=== PATIENT | male | born 1985 | race Hispanic/Latino ===

== ENCOUNTER 2019-09-01 00:09 | Emergency (ER) | payer OTHER, SELFPAY ==
[2019-09-01] MEDS ORDERED: SODIUM CHLORIDE 0.9% (FLUSH) 10 ML SYG IV PRN (00:24)
[2019-09-01] MEDS: SODIUM CHLORIDE 0.9% 1000ML 1,000 ML IVS ONE (00:25)
--- NOTE | 2019-09-01 00:31 | ED.PDOC ---
History of Present Illness - General Time Seen by Provider: 09/01/19 00:24 Source: RN notes reviewed, Vital Signs reviewed, EMS notes reviewed, police, RN/MD, EMS Exam Limitations: clinical condition - History of Present Illness Initial Comments: Pt is a 34 yo male who presents to ED s/p cardiac arrest. All information is from EMS. Per EMS, pt was detained in police care and wrapped the seatbelt around his neck and strangled himself. CPR started immediately. Pt pulseless upon EMS arrival and Parmjit Air airway placed for ventilation. Given 3 doses of EPI in route with ROSC. Upon arrival to ED, pulse is sinus in 130's and has strong femoral pulse. Intubated with glidescope with 7.5 blade. Pt has made no spontaneous movements or respirations and GCS is 3. he has not recieved any sedation. Allergies/Adverse Reactions: Allergies UNOBTAINABLE Allergy (Verified 09/01/19 00:35) Review of Systems - Review of Systems Unable to Obtain Due To: intubated, clinical condition Physical Exam - Physical Exam General Appearance: Other - Purple discoloration of neck and face. Parmjit Airway in place Eye Exam: bilateral other - Pupils are 8 mm and not responsive Neck: other - C collar placed on arrival Respiratory: other - No spontaneous respirations. BVM ventilated with bilateral BS Cardiovascular/Chest: other - strong femoral pulse, tachycardic Gastrointestinal/Abdominal: other - soft, ND Extremity: other - No deformity or trauma noted to extremities Neurologic: other - No purposeful movements. GCS 3 Skin Exam: other - Bluish discoloration of face Progress - Progress Progress: 09/01/19 00:35 Pt presented s/p cardiac arrest with ROSC. intubated in ED and Epi drip ordered. I have d/w Dr. Brito at [facility] ED via transfer line and accepts to ED. Systolic pressures in 220's upon [facility] arrival and Epi drip was not started. CXR shows no PTX. ETT in good position. Has 2 PIV's. Will transfer for higher level of care. - Results/Orders Results/Orders: EKG-- sinus tachycardia, rate 147, wide QRS, RBBB, diffuse ST depressions EXAM: XR Chest, 1 View CLINICAL HISTORY: The patient is 34 years old and is Male; Intubation TECHNIQUE: Frontal view of the chest. COMPARISON: No relevant prior studies available. FINDINGS: LUNGS: Mild bilateral upper lobe and infrahilar interstitial opacities are present. There are low lung volumes. PLEURAL SPACE: Unremarkable. No pneumothorax. HEART: Unremarkable. No cardiomegaly. MEDIASTINUM: Unremarkable. BONES/JOINTS: Unremarkable. TUBES, LINES AND DEVICES: An endotracheal tube is present with the tip approximately 2.4 cm superior to the lyubov. IMPRESSION: 1. Endotracheal tube tip in appropriate position. 2. Mild interstitial markings which may be secondary to mild infectious process. 09/01/19 00:24 IV Care:Saline Lock per Protoc QSHIFT Telemetry .ONCE Sodium Chloride 0.9% (Flush) [Saline Flush Syringe] 10 ml IV PRN PRN EKG Stat Pulse Ox Stat 09/01/19 00:25 Sodium Chloride 0.9% 1000ML [Ns 1000 ml] 1,000 ml IVS ONCE EKG Assessment ONCE Pulse Oximetry Assessment DAILY 09/01/19 00:39 Collar:Cervical (Hard) .PRN Laboratory Results - last 24 hr 09/01/19 09/01/19 00:20 00:20 WBC 6.3 RBC 4.95 Hgb 15.5 Hct 46.7 MCV 94.3 H MCH 31.3 H MCHC 33.2 RDW 14.1 Plt Count 230 MPV 8.6 Absolute Neuts (auto) Not Reportable Absolute Lymphs (auto) Not Reportable Absolute Monos (auto) Not Reportable Absolute Eos (auto) Not Reportable Neutrophils % Not Reportable Neutrophils % (Manual) 13.0 L Lymphocytes % Not Reportable Lymphocytes % (Manual) 83.0 Monocytes % Not Reportable Monocytes % (Manual) 4.0 Eosinophils % Not Reportable Basophils % Not Reportable Platelet Estimate Normal Normal RBC Morphology Normal rbc morph PT 9.7 INR < 1.00 PTT (SP) 24.5 Sodium 139 Potassium 2.4 L* Chloride 100 L Carbon Dioxide 19 L Anion Gap 22.4 H BUN 15 Creatinine 1.56 H BUN/Creatinine Ratio 9.6 L Random Glucose 222 H Serum Osmolality 285.2 Calcium 8.5 Magnesium 2.5 Creatine Kinase 311 H* CK-MB (CK-2) 2.0 CK-MB (CK-2) % Not Reportable Troponin I < 0.02 B-Natriuretic Peptide 29.9 Procedures - Intubation Time of Intubation: 00:20 Intubation Method: orotracheal Tube Size (cm): 7.5 Breath Sounds after Intubation: equal Intubation Complications: no complications Post Intubation Xray: Yes - Intubated with glidescope and bougie on first attempt with no complications Departure - Departure Clinical Impression: Cardiac arrest, Respiratory arrest Strangulation or suffocation Qualifiers: Encounter type: initial encounter Qualified Code(s): T71.194A - Asphyxiation due to mechanical threat to breathing due to other causes, undetermined, initial encounter Time of Disposition: 00:35 Disposition: Transfer to Hospital Condition: Serious Comments: Transferred by [facility] intubated for higher level of care. Critical Care Note - Critical Care Note Total Time (mins): 35 Comments: Critical care for s/p cardiac arrest patient with frequent monitoring for respiratory and circulatory decompensation of 35 minutes. Exclusive of other seperately billable procedures. Transfer to Outside Facility - Transfer Information Decision to Transfer Date: 09/01/19 Decision to Transfer Time: 00:35 Reason for Transfer: specialized care not available Accepting Provider:: Dr. Brito in ED Accepting Facility: [facility]
[2019-09-01] MEDS: EPINEPHrine INJ 0.1 MG/ML 10 ML SYG IV ONE (00:40)
[2019-09-01] MEDS ORDERED: EPINEPHrine HCL AMP 1 MG/ML AMP ONE (00:42)
--- NOTE | 2019-09-01 00:53 | RAD ---
EXAM: XR Chest, 1 View CLINICAL HISTORY: The patient is 34 years old and is Male; Intubation TECHNIQUE: Frontal view of the chest. COMPARISON: No relevant prior studies available. FINDINGS: LUNGS: Mild bilateral upper lobe and infrahilar interstitial opacities are present. There are low lung volumes. PLEURAL SPACE: Unremarkable. No pneumothorax. HEART: Unremarkable. No cardiomegaly. MEDIASTINUM: Unremarkable. BONES/JOINTS: Unremarkable. TUBES, LINES AND DEVICES: An endotracheal tube is present with the tip approximately 2.4 cm superior to the lyubov. IMPRESSION: 1. Endotracheal tube tip in appropriate position. 2. Mild interstitial markings which may be secondary to mild infectious process. Electronically signed by: Krista Ray MD 09/01/2019 12:52 AM CDT
[2019-09-01 05:20] VITALS: BP 223/127; TEMP 97; O2SAT 99
== END 2019-09-01 01:10 | disposition short-term general hospital (02) ==
LOC: ER 00:09
DX: I46.9 Cardiac arrest, cause unspecified (principal); T71.194A Asphyxiation due to mechanical threat to breathing due to other causes, undetermined, initial encounter; Y92.9 Unspecified place or not applicable